=== PATIENT | male | born 1955 | race Two or more races ===

== ENCOUNTER 2020-12-19 18:54 | Inpatient (IN) | payer BC, OTHER ==
[~2020-12-19] VITALS: Ht 172.7 cm; Wt 120.2 kg
[~2020-12-19 18:54] MED LIST: ASPIRIN; LOSARTAN; METFORMIN; OMEPRAZOLE; PIOGLITAZONE; SIMVASTATIN; ZOLPIDEM
[2020-12-19] MEDS ORDERED: ALBUTEROL (0.083%) 2.5MG/3ML NEB HHN STA (19:10)
[2020-12-19] MEDS ORDERED: DEXAMETHASONE 10 MG/ML VIAL IV ONE (19:15)
[2020-12-19 19:27] LABS: BG BASE EXCESS -0.4 mmol/L (-2.0-2.0); BG CARBOXYHEMOGLOBIN 0.5 % (0.5-1.5); BG DEOXYHEMOGLOBIN 6.7 % (0.0-5.0); BG FRACTION INSPIRED OXYGEN 100; BG HCO3 ACT 21.2 mmol/L (22.0-26.0); BG METHEMOGLOBIN 0.1 % (0.0-1.5); BG OXYGEN SATURATION 93.3 % (92.0-98.5); BG OXYHEMOGLOBIN 92.7 % (94.0-97.0); BG PCO2 27.9 mmHg (35.0-45.0); BG PH 7.499 (7.350-7.450); BG PO2 60.5 mmHg (75.0-100.0); BG SAMPLE SITE RIGHT RADIAL; BG TOTAL HEMOGLOBIN 15.9 g/dL (12.0-18.0); BG VENT MODE MASK - NRB
[2020-12-19 19:32] LABS: HEMATOCRIT. 45.5 % (42.0-52.0); HEMOGLOBIN. 15.7 g/dL (14.0-18.0); MEAN CORPUSCULAR HEMOGLOBIN 30.9 pg (28.0-32.0); MEAN CORPUSCULAR VOLUME 89.6 fL (80.0-94.0); MEAN PLATELET VOLUME 8.2 fl (7.4-10.4); PLATELET 234 x1000/uL (130-400); RED BLOOD CELL COUNT 5.08 mill/uL (4.7-6.1); RED CELL DISTRIBUTION WIDTH 13.1 % (11.6-14.6)
[2020-12-19 19:38] LABS: CHLORIDE 90 mEq/L (98-107)
[2020-12-19 19:46] LABS: PLATELET ESTIMATE NORMAL
[2020-12-19 19:47] LABS: INR 1.1; PROTHROMBIN TIME 11.8 sec (9.6-11.0)
[2020-12-19 19:48] LABS: CREATINE KINASE 98 IU/L (39-308)
[2020-12-19] MEDS ORDERED: SODIUM CHLORIDE 0.9% 1,000 ML IV ONE (21:00)
[2020-12-19] MEDS ORDERED: PIPERACILLIN/TAZOBACTAM 3.375GM/50ML PREMIX IV ONE (21:00)
[2020-12-19] MEDS ORDERED: VANCOMYCIN 1 G PREMIX 200 ML IV SCH (21:00)
[2020-12-19 22:15] LABS: CLARITY URINE CLEAR (CLEAR); COLOR URINE DARK YELLOW (YELLOW); KETONES URINE 1+ (NEGATIVE); LEUKOCYTE ESTERASE URINE NEGATIVE (NEGATIVE); NITRITE URINE NEGATIVE (NEGATIVE); OCCULT BLOOD URINE NEGATIVE (NEGATIVE); PH URINE 6.5 (4.5-8.0); PROTEIN URINE 2+ (NEGATIVE); SPECIFIC GRAVITY URINE 1.025 (1.005-1.030)
[2020-12-20] MEDS ORDERED: ACETAMINOPHEN 325MG TABLET PO SCH ×2 (00:30→01:00)
[2020-12-20] MEDS ORDERED: DEXTROSE 50% WATER 50ML SYRINGE IV PRN ×3 (06:30→14:45)
[2020-12-20] MEDS: INSULIN LISPRO (LOW DOSE) 100 UNITS/ML SUBCUT SCH ×2 (06:36→13:40)
[2020-12-20] MEDS ORDERED: BLOOD SUGAR DIAGNOSTIC STRIP TEST SCH ×2 (07:00→17:40)
[2020-12-20 11:12] VITALS: BP 134/65
[2020-12-20 12:00] VITALS: BP 112/65
[2020-12-20] MEDS ORDERED: ERGOCALCIFEROL 50000UNITS CAPSULE PO NR (14:45)
[2020-12-20] MEDS ORDERED: ASCORBIC ACID 500 MG TABLET PO NR (14:45)
[2020-12-20] MEDS ORDERED: ENOXAPARIN 40MG/0.4ML SYR SUBCUT NR (14:45)
[2020-12-20 16:00] VITALS: BP 110/67
[2020-12-20] MEDS: MONTELUKAST SODIUM 10MG TABLET PO SCH (16:18)
[2020-12-20] MEDS ORDERED: ACETAMINOPHEN 650MG/20.3ML UDC PO PRN (17:00)
[2020-12-20] MEDS: BLOOD SUGAR DIAGNOSTIC STRIP TEST SCH ×2 (17:36→21:40)
[2020-12-20] MEDS: PIPERACILLIN/TAZOBACTAM 3.375 G in DEXT 5% WATER 100 ML IV SCH ×2 (17:43→23:11)
[2020-12-20] MEDS: HYDROCODONE/ACETAMINOPHEN 5/325MG TABLET PO PRN (17:44)
[2020-12-20] MEDS: INSULIN LISPRO 100 UNITS/ML SUBCUT SCH ×2 (17:45→21:47)
[2020-12-20] MEDS: ALBUTEROL 6.7GM HFA INHALER ORI SCH ×2 (18:00→23:11)
[2020-12-20] MEDS ORDERED: INSULIN LISPRO 100 UNITS/ML SUBCUT SCH (18:10)
[2020-12-20 20:00] VITALS: BP 113/68
[2020-12-20] MEDS: GUAIFENESIN 600MG ER TABLET PO SCH (21:40)
[2020-12-20] MEDS: FAMOTIDINE 20MG TABLET PO SCH (21:40)
[2020-12-21 00:09] VITALS: BP 116/67
[2020-12-21 04:00] VITALS: BP 112/70
[2020-12-21] MEDS: PIPERACILLIN/TAZOBACTAM 3.375 G in DEXT 5% WATER 100 ML IV SCH ×4 (05:28→22:40)
[2020-12-21] MEDS: ALBUTEROL 6.7GM HFA INHALER ORI SCH ×4 (05:28→21:00)
[2020-12-21] MEDS: HYDROCODONE/ACETAMINOPHEN 5/325MG TABLET PO PRN (06:17)
[2020-12-21 06:24] LABS: HEMATOCRIT. 42.5 % (42.0-52.0); HEMOGLOBIN. 14.9 g/dL (14.0-18.0); MEAN CORPUSCULAR HEMOGLOBIN 31.2 pg (28.0-32.0); MEAN CORPUSCULAR VOLUME 89.3 fL (80.0-94.0); MEAN PLATELET VOLUME 8.2 fl (7.4-10.4); PLATELET 310 x1000/uL (130-400); RED BLOOD CELL COUNT 4.76 mill/uL (4.7-6.1); RED CELL DISTRIBUTION WIDTH 13.3 % (11.6-14.6)
[2020-12-21 06:50] LABS: CHLORIDE 88 mEq/L (98-107)
[2020-12-21 06:58] LABS: LDL CHOLESTEROL 52 mg/dL (5-100)
[2020-12-21 06:59] LABS: T4 FREE 1.85 ng/dL (0.76-1.46)
[2020-12-21 07:00] LABS: HDL CHOLESTEROL 23 mg/dL (40-59)
[2020-12-21 08:00] VITALS: BP 126/73
[2020-12-21 08:12] LABS: BG BASE EXCESS -2.5 mmol/L (-2.0-2.0); BG CARBOXYHEMOGLOBIN 0.3 % (0.5-1.5); BG FRACTION INSPIRED OXYGEN 100; BG HCO3 ACT 20.6 mmol/L (22.0-26.0); BG METHEMOGLOBIN 0.3 % (0.0-1.5); BG OXYGEN SATURATION 85.9 % (92.0-98.5); BG OXYHEMOGLOBIN 85.4 % (94.0-97.0); BG PCO2 31.6 mmHg (35.0-45.0); BG PH 7.433 (7.350-7.450); BG PO2 48.2 mmHg (75.0-100.0); BG SAMPLE SITE RIGHT RADIAL; BG VENT MODE HIGH FLOW
[2020-12-21] MEDS: BLOOD SUGAR DIAGNOSTIC STRIP TEST SCH ×4 (08:23→20:35)
[2020-12-21] MEDS ORDERED: ENOXAPARIN 30MG/0.3ML SYR SUBCUT SCH (09:00)
[2020-12-21] MEDS ORDERED: ENOXAPARIN 40MG/0.4ML SYR SUBCUT SCH (09:00)
[2020-12-21] MEDS: DEXAMETHASONE 10 MG/ML VIAL IV SCH (09:43)
[2020-12-21] MEDS: DOCUSATE SODIUM 250MG CAPSULE PO SCH (09:43)
[2020-12-21] MEDS: ASCORBIC ACID 500 MG TABLET PO SCH (09:44)
[2020-12-21] MEDS: GUAIFENESIN 600MG ER TABLET PO SCH ×2 (09:44→20:33)
[2020-12-21] MEDS: INSULIN LISPRO 100 UNITS/ML SUBCUT SCH ×4 (09:45→20:35)
[2020-12-21] MEDS ORDERED: POTASSIUM CHLORIDE 20MEQ TABLET SR PO NR (09:45)
[2020-12-21] MEDS ORDERED: HYDROCODONE/ACETAMINOPHEN 5/325MG TABLET PO PRN (11:30)
[2020-12-21 12:00] VITALS: BP 130/77
[2020-12-21] MEDS ORDERED: ENOXAPARIN 80MG/0.8ML SYR SUBCUT NR (12:15)
[2020-12-21 12:16] LABS: BG CARBOXYHEMOGLOBIN 0.8 % (0.5-1.5); BG DEOXYHEMOGLOBIN 5.3 % (0.0-5.0); BG FRACTION INSPIRED OXYGEN 100; BG HCO3 ACT 19.9 mmol/L (22.0-26.0); BG METHEMOGLOBIN 0.1 % (0.0-1.5); BG OXYGEN SATURATION 94.7 % (92.0-98.5); BG OXYHEMOGLOBIN 93.8 % (94.0-97.0); BG PCO2 30.2 mmHg (35.0-45.0); BG PH 7.436 (7.350-7.450); BG PO2 70.2 mmHg (75.0-100.0); BG SAMPLE SITE RIGHT RADIAL; BG TOTAL HEMOGLOBIN 15.4 g/dL (12.0-18.0); BG VENT MODE HIGH FLOW
[2020-12-21] MEDS: LORAZEPAM 0.5MG TABLET PO PRN (12:27)
[2020-12-21 16:00] VITALS: BP 116/68
[2020-12-21] MEDS: MONTELUKAST SODIUM 10MG TABLET PO SCH (18:31)
[2020-12-21 20:00] VITALS: BP 132/77
[2020-12-21] MEDS: TRAZODONE HCL 50MG TABLET PO SCH (20:33)
[2020-12-21] MEDS: ENOXAPARIN 100MG/ML SYR SUBCUT SCH (20:33)
[2020-12-21] MEDS: FAMOTIDINE 20MG TABLET PO SCH (20:33)
[2020-12-21] MEDS ORDERED: IVERMECTIN 3 MG TABLET PO NR (22:00)
[2020-12-22] VITALS (49 sets, daily range): BP systolic 57–146; BP diastolic 26–91
[2020-12-22 00:57] LABS: BG CARBOXYHEMOGLOBIN 0.4 % (0.5-1.5); BG DEOXYHEMOGLOBIN 18.2 % (0.0-5.0); BG FRACTION INSPIRED OXYGEN 100; BG HCO3 ACT 21.6 mmol/L (22.0-26.0); BG METHEMOGLOBIN 0.1 % (0.0-1.5); BG OXYGEN SATURATION 81.7 % (92.0-98.5); BG OXYHEMOGLOBIN 81.3 % (94.0-97.0); BG PCO2 41.5 mmHg (35.0-45.0); BG PH 7.335 (7.350-7.450); BG PO2 47.1 mmHg (75.0-100.0); BG SAMPLE SITE RIGHT RADIAL; BG VENT MODE MASK - BIPAP
[2020-12-22 02:21] LABS: BG BASE EXCESS -2.5 mmol/L (-2.0-2.0); BG CARBOXYHEMOGLOBIN 0.2 % (0.5-1.5); BG DEOXYHEMOGLOBIN 7.4 % (0.0-5.0); BG FRACTION INSPIRED OXYGEN 100; BG HCO3 ACT 22.9 mmol/L (22.0-26.0); BG METHEMOGLOBIN 0.1 % (0.0-1.5); BG OXYGEN SATURATION 92.6 % (92.0-98.5); BG OXYHEMOGLOBIN 92.3 % (94.0-97.0); BG PCO2 41.9 mmHg (35.0-45.0); BG PH 7.356 (7.350-7.450); BG PO2 66.1 mmHg (75.0-100.0); BG SAMPLE SITE RIGHT BRACHIAL; BG TOTAL HEMOGLOBIN 14.9 g/dL (12.0-18.0); BG TOTAL RESPIRATORY RATE 50 b/min; BG VENT MODE MASK - BIPAP
[2020-12-22] MEDS: LORAZEPAM 0.5MG TABLET PO PRN (02:31)
[2020-12-22] MEDS: LORAZEPAM 2MG/ML CPJ IV PRN ×2 (03:06→09:21)
[2020-12-22] MEDS: ALBUTEROL 6.7GM HFA INHALER ORI SCH (03:23)
[2020-12-22] MEDS ORDERED: MORPHINE SULFATE 2 MG/ML CPJ (NOT FOR IM USE) IV PRN (04:30)
[2020-12-22] MEDS: PIPERACILLIN/TAZOBACTAM 3.375 G in DEXT 5% WATER 100 ML IV SCH ×4 (04:46→23:26)
[2020-12-22] MEDS: INSULIN LISPRO 100 UNITS/ML SUBCUT SCH ×4 (08:07→20:16)
[2020-12-22] MEDS: GUAIFENESIN 600MG ER TABLET PO SCH ×2 (09:00→20:08)
[2020-12-22] MEDS: DOCUSATE SODIUM 250MG CAPSULE PO SCH (09:00)
[2020-12-22] MEDS: ASCORBIC ACID 500 MG TABLET PO SCH (09:00)
[2020-12-22] MEDS: ENOXAPARIN 100MG/ML SYR SUBCUT SCH ×2 (09:09→20:08)
[2020-12-22] MEDS: DEXAMETHASONE 10 MG/ML VIAL IV SCH (09:09)
[2020-12-22 09:53] LABS: CHLORIDE 86 mEq/L (98-107)
[2020-12-22 10:10] LABS: BASOPHILS % 0.5 % (0.0-2.0); HEMATOCRIT. 43.1 % (42.0-52.0); HEMOGLOBIN. 14.5 g/dL (14.0-18.0); LYMPHOCYTES % 7.5 % (20.0-50.0); MEAN CORPUSCULAR HEMOGLOBIN 30.6 pg (28.0-32.0); MEAN PLATELET VOLUME 8.2 fl (7.4-10.4); MONOCYTES % 3.4 % (2.0-8.0); NEUTROPHILS % 88.6 % (40.0-76.0); PLATELET 339 x1000/uL (130-400); RED BLOOD CELL COUNT 4.74 mill/uL (4.7-6.1); RED CELL DISTRIBUTION WIDTH 13.5 % (11.6-14.6)
[2020-12-22] MEDS: BLOOD SUGAR DIAGNOSTIC STRIP TEST SCH ×3 (11:30→20:08)
[2020-12-22] MEDS: PHENYLEPHRINE 100 MG in DEXT 5% WATER 240 ML IV PRN ×2 (11:44→23:26)
[2020-12-22] MEDS: NOREPINEPHRINE 32 MG in DEXT 5% WATER 218 ML IV PRN ×2 (11:45→19:05)
[2020-12-22] MEDS: PROPOFOL 10MG/ML 100ML 100 ML IV PRN ×2 (11:46→16:32)
[2020-12-22] MEDS: FENTANYL CITRATE/PF 2,500 MCG in SODIUM CHLORIDE 0.9% 200 ML IV PRN ×2 (12:53→20:12)
[2020-12-22 14:57] LABS: BG BASE EXCESS -9.5 mmol/L (-2.0-2.0); BG CARBOXYHEMOGLOBIN 0.6 % (0.5-1.5); BG DEOXYHEMOGLOBIN 36.6 % (0.0-5.0); BG FRACTION INSPIRED OXYGEN 100; BG METHEMOGLOBIN 0.3 % (0.0-1.5); BG OXYGEN SATURATION 63.1 % (92.0-98.5); BG OXYHEMOGLOBIN 62.5 % (94.0-97.0); BG PCO2 72.9 mmHg (35.0-45.0); BG PH 7.097 (7.350-7.450); BG PO2 36.9 mmHg (75.0-100.0); BG SAMPLE SITE RIGHT RADIAL; BG TOTAL HEMOGLOBIN 16.4 g/dL (12.0-18.0); BG VENT MODE PRVC
[2020-12-22 15:08] LABS: BG CARBOXYHEMOGLOBIN 0.7 % (0.5-1.5); BG DEOXYHEMOGLOBIN 45.6 % (0.0-5.0); BG FRACTION INSPIRED OXYGEN 100; BG HCO3 ACT 23.4 mmol/L (22.0-26.0); BG METHEMOGLOBIN 0.1 % (0.0-1.5); BG OXYHEMOGLOBIN 53.6 % (94.0-97.0); BG PCO2 62.6 mmHg (35.0-45.0); BG PO2 30.7 mmHg (75.0-100.0); BG SAMPLE SITE RIGHT RADIAL; BG TOTAL HEMOGLOBIN 15.4 g/dL (12.0-18.0); BG TOTAL RESPIRATORY RATE 51 b/min; BG VENT MODE MASK - BIPAP
[2020-12-22] MEDS: MONTELUKAST SODIUM 10MG TABLET PO SCH (16:35)
[2020-12-22] MEDS: SODIUM CHLORIDE 0.9% 1,000 ML IV SCH (16:36)
[2020-12-22 20:00] LABS: PLATELET ESTIMATE NORMAL
[2020-12-22] MEDS: TRAZODONE HCL 50MG TABLET PO SCH (20:08)
[2020-12-22] MEDS: FAMOTIDINE 20MG TABLET PO SCH (20:08)
[2020-12-23] VITALS (64 sets, daily range): BP systolic 48–175; BP diastolic 30–87
[2020-12-23] MEDS: NOREPINEPHRINE 32 MG in DEXT 5% WATER 218 ML IV PRN ×3 (00:59→16:17)
[2020-12-23] MEDS: PIPERACILLIN/TAZOBACTAM 3.375 G in DEXT 5% WATER 100 ML IV SCH ×4 (04:06→22:33)
[2020-12-23] MEDS: PROPOFOL 10MG/ML 100ML 100 ML IV PRN ×3 (04:19→21:47)
[2020-12-23] MEDS: SODIUM CHLORIDE 0.9% 1,000 ML IV SCH ×2 (06:03→16:22)
[2020-12-23] MEDS: BLOOD SUGAR DIAGNOSTIC STRIP TEST SCH ×4 (06:04→21:00)
[2020-12-23] MEDS: INSULIN LISPRO 100 UNITS/ML SUBCUT SCH ×4 (06:04→23:07)
[2020-12-23] MEDS: ALBUTEROL 6.7GM HFA INHALER ORI SCH ×2 (08:17→12:00)
[2020-12-23] MEDS: DOCUSATE SODIUM 250MG CAPSULE PO SCH (09:00)
[2020-12-23] MEDS: DEXAMETHASONE 10 MG/ML VIAL IV SCH (09:16)
[2020-12-23] MEDS: ENOXAPARIN 100MG/ML SYR SUBCUT SCH ×2 (09:16→22:33)
[2020-12-23] MEDS: ASCORBIC ACID 500 MG TABLET PO SCH (09:16)
[2020-12-23] MEDS: GUAIFENESIN 600MG ER TABLET PO SCH ×2 (09:18→22:34)
[2020-12-23] MEDS ORDERED: INSULIN GLARGINE UD 100 UNITS/ML SYR SUBCUT NR (10:00)
[2020-12-23 11:33] LABS: BG BASE EXCESS -10.9 mmol/L (-2.0-2.0); BG CARBOXYHEMOGLOBIN 0.7 % (0.5-1.5); BG FRACTION INSPIRED OXYGEN 100; BG HCO3 ACT 17.3 mmol/L (22.0-26.0); BG METHEMOGLOBIN 0.2 % (0.0-1.5); BG OXYGEN SATURATION 91.9 % (92.0-98.5); BG OXYHEMOGLOBIN 91.1 % (94.0-97.0); BG PCO2 47.2 mmHg (35.0-45.0); BG PH 7.183 (7.350-7.450); BG PO2 63.3 mmHg (75.0-100.0); BG SAMPLE SITE RIGHT RADIAL; BG TOTAL HEMOGLOBIN 15.4 g/dL (12.0-18.0); BG VENT MODE PRVC
[2020-12-23] MEDS ORDERED: SODIUM CHLORIDE 3% 500ML IV SOLN IV ONE (13:15)
[2020-12-23] MEDS ORDERED: SODIUM CHLORIDE 3% 500 ML IV NR (13:30)
[2020-12-23] MEDS: FENTANYL CITRATE/PF 2,500 MCG in SODIUM CHLORIDE 0.9% 200 ML IV PRN (13:48)
[2020-12-23] MEDS: MONTELUKAST SODIUM 10MG TABLET PO SCH (16:24)
[2020-12-23] MEDS: PHENYLEPHRINE 100 MG in DEXT 5% WATER 240 ML IV PRN (16:47)
[2020-12-23] MEDS ORDERED: IVERMECTIN 3 MG TABLET PO NR (22:00)
[2020-12-23] MEDS: INSULIN GLARGINE UD 100 UNITS/ML SYR SUBCUT SCH (22:31)
[2020-12-23] MEDS: FAMOTIDINE 20MG TABLET PO SCH (22:33)
[2020-12-23] MEDS: TRAZODONE HCL 50MG TABLET PO SCH (22:33)
[2020-12-24] VITALS (99 sets, daily range): BP systolic 45–176; BP diastolic 28–85
[2020-12-24] MEDS: FENTANYL CITRATE/PF 2,500 MCG in SODIUM CHLORIDE 0.9% 200 ML IV PRN ×2 (03:04→18:51)
[2020-12-24] MEDS: PHENYLEPHRINE 100 MG in DEXT 5% WATER 240 ML IV PRN ×3 (03:05→18:38)
[2020-12-24] MEDS: PIPERACILLIN/TAZOBACTAM 3.375 G in DEXT 5% WATER 100 ML IV SCH ×3 (03:53→15:55)
[2020-12-24] MEDS: NOREPINEPHRINE 32 MG in DEXT 5% WATER 218 ML IV PRN ×3 (03:55→19:55)
[2020-12-24 05:57] LABS: HEMATOCRIT. 39.2 % (42.0-52.0); HEMOGLOBIN. 13.1 g/dL (14.0-18.0); MEAN CORPUSCULAR HEMOGLOBIN 30.6 pg (28.0-32.0); MEAN CORPUSCULAR VOLUME 91.4 fL (80.0-94.0); MEAN PLATELET VOLUME 8.8 fl (7.4-10.4); PLATELET 249 x1000/uL (130-400); RED BLOOD CELL COUNT 4.29 mill/uL (4.7-6.1)
[2020-12-24] MEDS: BLOOD SUGAR DIAGNOSTIC STRIP TEST SCH ×4 (07:00→20:53)
[2020-12-24] MEDS: INSULIN LISPRO 100 UNITS/ML SUBCUT SCH ×4 (07:04→21:05)
[2020-12-24] MEDS: PROPOFOL 10MG/ML 100ML 100 ML IV PRN ×3 (08:46→23:37)
[2020-12-24 08:50] LABS: BG BASE EXCESS -11.1 mmol/L (-2.0-2.0); BG CARBOXYHEMOGLOBIN 0.6 % (0.5-1.5); BG FRACTION INSPIRED OXYGEN 100; BG HCO3 ACT 17.7 mmol/L (22.0-26.0); BG METHEMOGLOBIN 0.4 % (0.0-1.5); BG PCO2 51.5 mmHg (35.0-45.0); BG PH 7.155 (7.350-7.450); BG PO2 176.1 mmHg (75.0-100.0); BG SAMPLE SITE LEFT RADIAL; BG VENT MODE VENT - PRVC
[2020-12-24] MEDS: DOCUSATE SODIUM 250MG CAPSULE PO SCH (08:51)
[2020-12-24] MEDS: GUAIFENESIN 600MG ER TABLET PO SCH ×2 (08:51→20:04)
[2020-12-24] MEDS: ENOXAPARIN 100MG/ML SYR SUBCUT SCH (08:51)
[2020-12-24] MEDS: ASCORBIC ACID 500 MG TABLET PO SCH (08:51)
[2020-12-24] MEDS: DEXAMETHASONE 10 MG/ML VIAL IV SCH (08:51)
[2020-12-24] MEDS ORDERED: SODIUM CHLORIDE 3% 500ML IV SOLN IV ONE ×2 (09:00→09:15)
[2020-12-24] MEDS: INSULIN GLARGINE UD 100 UNITS/ML SYR SUBCUT SCH ×2 (09:35→21:05)
[2020-12-24 10:00] LABS: PLATELET ESTIMATE NORMAL
[2020-12-24] MEDS ORDERED: SODIUM CHLORIDE 3% 500 ML IV NR (10:00)
[2020-12-24] MEDS ORDERED: SODIUM BICARBONATE 8.4% 1 MEQ/ML 50ML SYR IV SCH (11:15)
[2020-12-24] MEDS: SODIUM CHLORIDE 0.9% 1,000 ML IV SCH ×3 (12:34→21:16)
[2020-12-24] MEDS ORDERED: LIDOCAINE HCL 1% 20ML VIAL (Pyxis) INJ ONE (12:41)
[2020-12-24] MEDS ORDERED: HEPARIN 1000 UNITS/ML 10ML ONE (12:41)
[2020-12-24] MEDS ORDERED: SODIUM BICARBONATE 4% (2.4MEQ) 5ML VIAL IV ONE (12:41)
[2020-12-24 14:41] LABS: BG BASE EXCESS -8.8 mmol/L (-2.0-2.0); BG CARBOXYHEMOGLOBIN 0.3 % (0.5-1.5); BG DEOXYHEMOGLOBIN 1.5 % (0.0-5.0); BG FRACTION INSPIRED OXYGEN 80; BG HCO3 ACT 19.5 mmol/L (22.0-26.0); BG METHEMOGLOBIN 0.3 % (0.0-1.5); BG OXYGEN SATURATION 98.5 % (92.0-98.5); BG OXYHEMOGLOBIN 97.9 % (94.0-97.0); BG PCO2 50.8 mmHg (35.0-45.0); BG PH 7.201 (7.350-7.450); BG PO2 141.1 mmHg (75.0-100.0); BG SAMPLE SITE RIGHT RADIAL; BG TOTAL HEMOGLOBIN 14.5 g/dL (12.0-18.0); BG VENT MODE VENT - PRVC
[2020-12-24 16:33] LABS: CLARITY URINE TURBID (CLEAR); COLOR URINE DARK YELLOW (YELLOW); KETONES URINE NEGATIVE (NEGATIVE); LEUKOCYTE ESTERASE URINE TRACE (NEGATIVE); NITRITE URINE NEGATIVE (NEGATIVE); OCCULT BLOOD URINE 2+ (NEGATIVE); PROTEIN URINE 2+ (NEGATIVE); SPECIFIC GRAVITY URINE 1.016 (1.005-1.030)
[2020-12-24] MEDS: MONTELUKAST SODIUM 10MG TABLET PO SCH (16:55)
[2020-12-24] MEDS ORDERED: SODIUM BICARBONATE 8.4% 1 MEQ/ML 50ML SYR IV NR ×2 (17:30→18:30)
[2020-12-24] MEDS: TRAZODONE HCL 50MG TABLET PO SCH (20:04)
[2020-12-24] MEDS: FAMOTIDINE 20MG TABLET PO SCH (20:04)
[2020-12-24] MEDS: PIPERACILLIN/TAZOBACTAM 2.25 G in DEXTROSE 5% WATER 50 ML IV SCH (23:05)
[2020-12-24 23:23] LABS: BG BASE EXCESS -7.9 mmol/L (-2.0-2.0); BG CARBOXYHEMOGLOBIN 0.3 % (0.5-1.5); BG DEOXYHEMOGLOBIN 4.4 % (0.0-5.0); BG FRACTION INSPIRED OXYGEN 60; BG HCO3 ACT 20.3 mmol/L (22.0-26.0); BG METHEMOGLOBIN 0.3 % (0.0-1.5); BG OXYGEN SATURATION 95.6 % (92.0-98.5); BG PCO2 51.7 mmHg (35.0-45.0); BG PH 7.211 (7.350-7.450); BG PO2 78.6 mmHg (75.0-100.0); BG SAMPLE SITE LEFT RADIAL; BG VENT MODE PRVC
[2020-12-25] VITALS (91 sets, daily range): BP systolic 90–169; BP diastolic 56–86
[2020-12-25] MEDS: PHENYLEPHRINE 100 MG in DEXT 5% WATER 240 ML IV PRN ×3 (00:04→18:55)
[2020-12-25] MEDS: PIPERACILLIN/TAZOBACTAM 2.25 G in DEXTROSE 5% WATER 50 ML IV SCH ×3 (05:22→17:16)
[2020-12-25] MEDS: BLOOD SUGAR DIAGNOSTIC STRIP TEST SCH ×4 (05:31→21:22)
[2020-12-25 05:50] LABS: HEMATOCRIT. 39.6 % (42.0-52.0); HEMOGLOBIN. 13.2 g/dL (14.0-18.0); MEAN CORPUSCULAR HEMOGLOBIN 30.3 pg (28.0-32.0); MEAN CORPUSCULAR VOLUME 90.9 fL (80.0-94.0); MEAN PLATELET VOLUME 8.6 fl (7.4-10.4); PLATELET 253 x1000/uL (130-400); RED BLOOD CELL COUNT 4.35 mill/uL (4.7-6.1)
[2020-12-25] MEDS: INSULIN LISPRO 100 UNITS/ML SUBCUT SCH ×4 (06:00→21:21)
[2020-12-25 06:08] LABS: CHLORIDE 94 mEq/L (98-107)
[2020-12-25 06:18] LABS: PHOSPHORUS 4.2 mg/dL (2.5-4.9)
[2020-12-25] MEDS: SODIUM CHLORIDE 0.9% 1,000 ML IV SCH ×2 (06:37→19:13)
[2020-12-25] MEDS: PROPOFOL 10MG/ML 100ML 100 ML IV PRN (08:06)
[2020-12-25 08:35] LABS: BG BASE EXCESS -7.9 mmol/L (-2.0-2.0); BG CARBOXYHEMOGLOBIN 0.9 % (0.5-1.5); BG DEOXYHEMOGLOBIN 3.6 % (0.0-5.0); BG HCO3 ACT 20.1 mmol/L (22.0-26.0); BG METHEMOGLOBIN 0.2 % (0.0-1.5); BG OXYGEN SATURATION 96.4 % (92.0-98.5); BG OXYHEMOGLOBIN 95.3 % (94.0-97.0); BG PCO2 50.8 mmHg (35.0-45.0); BG PH 7.216 (7.350-7.450); BG PO2 82.8 mmHg (75.0-100.0); BG SAMPLE SITE RIGHT RADIAL; BG TOTAL HEMOGLOBIN 14.2 g/dL (12.0-18.0); BG VENT MODE VENT- PRVC
[2020-12-25] MEDS: GUAIFENESIN 600MG ER TABLET PO SCH ×2 (08:50→21:22)
[2020-12-25] MEDS: DOCUSATE SODIUM 250MG CAPSULE PO SCH (08:50)
[2020-12-25] MEDS: ASCORBIC ACID 500 MG TABLET PO SCH (08:50)
[2020-12-25] MEDS: DEXAMETHASONE 10 MG/ML VIAL IV SCH (08:51)
[2020-12-25] MEDS ORDERED: ENOXAPARIN 100MG/ML SYR SUBCUT SCH (09:00)
[2020-12-25] MEDS: FENTANYL CITRATE/PF 2,500 MCG in SODIUM CHLORIDE 0.9% 200 ML IV PRN ×2 (09:49→23:16)
[2020-12-25] MEDS: MIDAZOLAM 100MG/100ML PMX 100 ML IV PRN ×2 (10:03→19:13)
[2020-12-25] MEDS ORDERED: SODIUM BICARBONATE 8.4% 1 MEQ/ML 50ML SYR IV NR (10:45)
[2020-12-25] MEDS: INSULIN GLARGINE UD 100 UNITS/ML SYR SUBCUT SCH ×2 (10:59→21:22)
[2020-12-25] MEDS ORDERED: VANCOMYCIN 2,000 MG in DEXT 5% WATER 500 ML IV SCH (11:00)
[2020-12-25 11:22] LABS: PLATELET ESTIMATE NORMAL
[2020-12-25] MEDS: MONTELUKAST SODIUM 10MG TABLET PO SCH (16:39)
[2020-12-25] MEDS: FAMOTIDINE 20MG TABLET PO SCH (21:22)
[2020-12-25] MEDS ORDERED: MIDAZOLAM HCL 100 MG in SODIUM CHLORIDE 0.9% 80 ML IV PRN (23:00)
[2020-12-26] VITALS (70 sets, daily range): BP systolic 98–142; BP diastolic 62–85
[2020-12-26] MEDS: SODIUM CHLORIDE 0.9% 1,000 ML IV SCH ×3 (04:10→22:38)
[2020-12-26] MEDS: PHENYLEPHRINE 100 MG in DEXT 5% WATER 240 ML IV PRN ×2 (05:22→16:49)
[2020-12-26 05:42] LABS: HEMATOCRIT. 38.9 % (42.0-52.0); HEMOGLOBIN. 12.8 g/dL (14.0-18.0); MEAN CORPUSCULAR HEMOGLOBIN 30.2 pg (28.0-32.0); MEAN CORPUSCULAR VOLUME 91.9 fL (80.0-94.0); MEAN PLATELET VOLUME 8.7 fl (7.4-10.4); PLATELET 239 x1000/uL (130-400); RED BLOOD CELL COUNT 4.24 mill/uL (4.7-6.1)
[2020-12-26 05:46] LABS: CHLORIDE 93 mEq/L (98-107)
[2020-12-26 05:49] LABS: PHOSPHORUS 4.8 mg/dL (2.5-4.9)
[2020-12-26] MEDS: BLOOD SUGAR DIAGNOSTIC STRIP TEST SCH ×4 (05:58→20:52)
[2020-12-26] MEDS: INSULIN LISPRO 100 UNITS/ML SUBCUT SCH ×4 (05:58→20:52)
[2020-12-26] MEDS: GUAIFENESIN 600MG ER TABLET PO SCH ×2 (09:07→20:52)
[2020-12-26] MEDS: DEXAMETHASONE 10 MG/ML VIAL IV SCH (09:07)
[2020-12-26] MEDS: ENOXAPARIN 120MG/0.8ML SYR SUBCUT SCH (09:07)
[2020-12-26] MEDS: DOCUSATE SODIUM 250MG CAPSULE PO SCH (09:07)
[2020-12-26] MEDS: INSULIN GLARGINE UD 100 UNITS/ML SYR SUBCUT SCH ×2 (09:10→21:33)
[2020-12-26 09:50] LABS: BG BASE EXCESS -6.7 mmol/L (-2.0-2.0); BG CARBOXYHEMOGLOBIN 0.2 % (0.5-1.5); BG DEOXYHEMOGLOBIN 6.9 % (0.0-5.0); BG FRACTION INSPIRED OXYGEN 60; BG HCO3 ACT 21.1 mmol/L (22.0-26.0); BG METHEMOGLOBIN 0.3 % (0.0-1.5); BG OXYGEN SATURATION 93.1 % (92.0-98.5); BG OXYHEMOGLOBIN 92.6 % (94.0-97.0); BG PCO2 51.1 mmHg (35.0-45.0); BG PH 7.233 (7.350-7.450); BG PO2 69.7 mmHg (75.0-100.0); BG SAMPLE SITE RIGHT RADIAL; BG TOTAL HEMOGLOBIN 13.2 g/dL (12.0-18.0); BG VENT MODE VENT - AC/PRVC
[2020-12-26] MEDS ORDERED: SODIUM BICARBONATE 8.4% 1 MEQ/ML 50ML SYR IV NR (11:30)
[2020-12-26] MEDS: ASCORBIC ACID 500 MG TABLET PO SCH (12:11)
[2020-12-26 12:48] LABS: PLATELET ESTIMATE NORMAL
[2020-12-26] MEDS: FENTANYL CITRATE/PF 2,500 MCG in SODIUM CHLORIDE 0.9% 200 ML IV PRN (13:21)
[2020-12-26] MEDS: MONTELUKAST SODIUM 10MG TABLET PO SCH (16:49)
[2020-12-26] MEDS: FAMOTIDINE 20MG TABLET PO SCH (20:52)
[2020-12-26] MEDS: MIDAZOLAM 100MG/100ML PMX 100 ML IV PRN (20:53)
[2020-12-27] VITALS (61 sets, daily range): BP systolic 47–154; BP diastolic 29–87
[2020-12-27] MEDS: FENTANYL CITRATE/PF 2,500 MCG in SODIUM CHLORIDE 0.9% 200 ML IV PRN ×2 (01:11→06:47)
[2020-12-27] MEDS: PHENYLEPHRINE 100 MG in DEXT 5% WATER 240 ML IV PRN ×2 (02:59→09:19)
[2020-12-27] MEDS: MIDAZOLAM 100MG/100ML PMX 100 ML IV PRN (05:14)
[2020-12-27] MEDS: INSULIN LISPRO 100 UNITS/ML SUBCUT SCH ×2 (06:06→12:00)
[2020-12-27] MEDS: BLOOD SUGAR DIAGNOSTIC STRIP TEST SCH ×2 (06:06→09:41)
[2020-12-27] MEDS: SODIUM CHLORIDE 0.9% 1,000 ML IV SCH (06:30)
[2020-12-27 07:25] LABS: BG BASE EXCESS -3.6 mmol/L (-2.0-2.0); BG CARBOXYHEMOGLOBIN 0.8 % (0.5-1.5); BG DEOXYHEMOGLOBIN 9.5 % (0.0-5.0); BG FRACTION INSPIRED OXYGEN 100; BG HCO3 ACT 24.9 mmol/L (22.0-26.0); BG METHEMOGLOBIN 0.2 % (0.0-1.5); BG OXYGEN SATURATION 90.4 % (92.0-98.5); BG OXYHEMOGLOBIN 89.5 % (94.0-97.0); BG PCO2 58.7 mmHg (35.0-45.0); BG PH 7.246 (7.350-7.450); BG PO2 61.8 mmHg (75.0-100.0); BG SAMPLE SITE RIGHT RADIAL; BG VENT MODE PRVC
[2020-12-27 08:52] LABS: HEMATOCRIT. 45.3 % (42.0-52.0); HEMOGLOBIN. 14.9 g/dL (14.0-18.0); MEAN CORPUSCULAR HEMOGLOBIN 30.3 pg (28.0-32.0); MEAN CORPUSCULAR VOLUME 92.3 fL (80.0-94.0); MEAN PLATELET VOLUME 8.9 fl (7.4-10.4); PLATELET 205 x1000/uL (130-400); RED BLOOD CELL COUNT 4.91 mill/uL (4.7-6.1); RED CELL DISTRIBUTION WIDTH 14.4 % (11.6-14.6)
[2020-12-27 08:58] LABS: CHLORIDE 104 mEq/L (98-107)
[2020-12-27] MEDS ORDERED: DEXAMETHASONE 4MG/ML 1ML VIAL IV SCH (09:00)
[2020-12-27] MEDS ORDERED: ERGOCALCIFEROL 50000UNITS CAPSULE PO SCH (09:00)
[2020-12-27 09:03] LABS: PHOSPHORUS 3.7 mg/dL (2.5-4.9)
[2020-12-27] MEDS: DEXTROSE 50% WATER 50ML SYRINGE IV PRN ×2 (09:30→10:21)
[2020-12-27] MEDS: GUAIFENESIN 600MG ER TABLET PO SCH (09:41)
[2020-12-27] MEDS: ENOXAPARIN 120MG/0.8ML SYR SUBCUT SCH (09:41)
[2020-12-27] MEDS: DOCUSATE SODIUM 250MG CAPSULE PO SCH (09:41)
[2020-12-27] MEDS: ASCORBIC ACID 500 MG TABLET PO SCH (09:41)
[2020-12-27 12:50] LABS: NUCLEATED RED BLOOD CELLS 1 /100 WBC; PLATELET ESTIMATE NORMAL
[2020-12-27] MEDS ORDERED: EPINEPHRINE 10 MG in SODIUM CHLORIDE 0.9% 240 ML IV PRN (13:15)
[2020-12-27] MEDS ORDERED: DOPAMINE 400MG/250ML PREMIX 250 ML IV PRN (13:15)
[2020-12-27] MEDS ORDERED: ATROPINE SULFATE 1MG/10ML SYR IV SCH (13:15)
[2020-12-27] MEDS ORDERED: VANCOMYCIN 1500MG in DEXTROSE 5% WATER 250ML IV NR (14:00)
[2020-12-27] MEDS ORDERED: SODIUM BICARBONATE 8.4% 1 MEQ/ML 50ML SYR IV SCH (14:00)
[2020-12-27] MEDS: NOREPINEPHRINE 32 MG in DEXT 5% WATER 218 ML IV PRN (14:01)
== END 2020-12-27 16:58 | disposition expired | DRG 870 ==
LOC: ER 18:54 → 7WST 23:05 → EDBEDREQTM 23:07 → EDBEDREQ 23:07 → EDBEDREQSVC 23:07 → EDBEDREQ 12-20 07:13 → ENRESERV 12-20 08:08 → 7WST 12-22 03:21 → MICUNO 12-22 06:30 → MICUSO 12-24 18:55
PROVIDERS: ADMIT Ophthalmology; ATTEND Ophthalmology
PROC: 5A12012 Performance of Cardiac Output, Single, Manual (ICD-10-PCS; principal; 2020-12-19)
PROC: 5A0935A Assistance with Respiratory Ventilation, Less than 24 Consecutive Hours, High Flow/Velocity Cannula (ICD-10-PCS; 2020-12-20)
PROC: 5A1955Z Respiratory Ventilation, Greater than 96 Consecutive Hours (ICD-10-PCS; 2020-12-22)
PROC: 02HV33Z Insertion of Infusion Device into Superior Vena Cava, Percutaneous Approach (ICD-10-PCS; 2020-12-22)
PROC: B548ZZA Ultrasonography of Superior Vena Cava, Guidance (ICD-10-PCS; 2020-12-22)
PROC: 0BH18EZ Insertion of Endotracheal Airway into Trachea, Via Natural or Artificial Opening Endoscopic (ICD-10-PCS; 2020-12-22)
PROC: 5A09357 Assistance with Respiratory Ventilation, Less than 24 Consecutive Hours, Continuous Positive Airway Pressure (ICD-10-PCS; 2020-12-22)
PROC: 05HM33Z Insertion of Infusion Device into Right Internal Jugular Vein, Percutaneous Approach (ICD-10-PCS; 2020-12-24)
PROC: B543ZZA Ultrasonography of Right Jugular Veins, Guidance (ICD-10-PCS; 2020-12-24)
PROC: 5A1D70Z Performance of Urinary Filtration, Intermittent, Less than 6 Hours Per Day (ICD-10-PCS; 2020-12-24)
PROC: 5A1D70Z Performance of Urinary Filtration, Intermittent, Less than 6 Hours Per Day (ICD-10-PCS; 2020-12-25)
DX: A41.89 Other specified sepsis (principal); U07.1 COVID-19; J12.82 Pneumonia due to coronavirus disease 2019; J96.01 Acute respiratory failure with hypoxia; N17.0 Acute kidney failure with tubular necrosis; N18.6 End stage renal disease; E87.1 Hypo-osmolality and hyponatremia; E87.2 Acidosis; I12.0 Hypertensive chronic kidney disease with stage 5 chronic kidney disease or end stage renal disease; D68.69 Other thrombophilia; R65.20 Severe sepsis without septic shock; E87.6 Hypokalemia; E11.22 Type 2 diabetes mellitus with diabetic chronic kidney disease; Z66 Do not resuscitate; Z51.5 Encounter for palliative care; E11.65 Type 2 diabetes mellitus with hyperglycemia; I46.9 Cardiac arrest, cause unspecified; Z99.2 Dependence on renal dialysis; Z83.3 Family history of diabetes mellitus; Z79.899 Other long term (current) drug therapy
CPT/HCPCS: 36415; 36556; 36600; 71045; 76770; 76937; 80048; 80053; 80061; 80202; 81003; 82375; 82550; 82570; 82728; 82805; 82962; 83036; 83605; 83615; 83735; 84100; 84145; 84156; 84300; 84439; 84443; 84478; 84484; 85025; 85379; 85384; 86140; 86850; 86900; 86920; 87426; 92950; 93005; 93970; 94002; 94003; 94640; 94660; 99291; C1725; C1752; J1100; J1642; J1644; J1650; J1815; J2060; J2250; J2270; J2370; J2543; J2704; J3010; J3370; J3490; J7030; J7050; J7060